=== PATIENT | female | born 1960 | race African-American/Black ===

== ENCOUNTER 2022-11-09 19:14 | Inpatient (IN) | payer OTHER, SELFPAY ==
[2022-11-09] MEDS ORDERED: Midazolam HCl 2 mg/2 ml Vial ONE ×2 (19:27→19:57)
[2022-11-09] MEDS ORDERED: Boostrix 0.5 ML (Tdap) VIAL (>/=7 yrs of age) ONE (19:38)
[2022-11-09] MEDS ORDERED: Ketorolac Tromethamine 30 MG/ML VIAL ONE (19:38)
[2022-11-09] MEDS ORDERED: metroNIDAZOLE 500 MG/100 ML BAG ONE (19:41)
[2022-11-09] MEDS ORDERED: Rabies Vaccine Human 2.5 UNITS VIAL ONE (19:56)
[2022-11-09] MEDS ORDERED: fentaNYL PF 100 MCG/2 ML SYRINGE ONE (19:57)
[2022-11-09] MEDS ORDERED: Neomycin-Polymyxin 1 ML AMP ONE (20:02)
[2022-11-09 20:12] LABS: #Eosinphils 0.1 thou/uL (0.0-0.7); #Monocytes 0.6 thou/uL (0.11-0.59); #Neutrophils 10.6 thou/uL (1.40-6.50); %Basophils 0.1 % (0.0-1.0); %Eosinophils 0.6 % (0.0-10.0); %Lymphocytes 7.9 % (21.0-51.0); %Neutrophils 86.4 % (42.0-75.0); Hemoglobin 11.4 g/dL (12.0-16.0); Mean Corpuscular HGB CONC 33.3 g/dL (32.0-36.0); Mean Corpuscular Hemoglobin 30.1 pg (27.0-31.0); Mean Corpuscular Volume 90.3 fl (78.0-98.0); Mean Platelet Volume 6.7 fL (7.4-10.4); Platelet Count 202 10x3/uL (130-400); RBC Distribution Width 12.3 % (11.5-14.5); White Blood Cell (WBC) Count 12.3 10x3/uL (4.8-10.8)
[2022-11-09 20:33] LABS: ALT (SGPT) 13 U/L (8-55); AST (SGOT) 20 U/L (5-34); Acetaminophen Less than 10.0 mcg/mL (10.0-30.0); Albumin 3.8 g/dL (3.4-4.8); Alcohol Less than 10 mg/dL (Less than 10); Alkaline Phosphatase 123 U/L (40-110); Anion Gap 15 mmol/L (10-20); BUN (Urea Nitrogen) 14 mg/dL (9.8-20.1); Bilirubin, Total 0.2 mg/dL (0.2-1.2); Calc. Creatinine Clearance 0 mL/min (70-130); Calcium 8.9 mg/dL (7.8-10.44); Carbon Dioxide 22 mmol/L (23-31); Chloride 110 mmol/L (98-107); Estimated GFR 87; Globulin 3.3 g/dL (2.4-3.5); Glucose 95 mg/dL (80-115); Potassium 3.8 mmol/L (3.5-5.1); Protein, Total 7.1 g/dL (5.8-8.1); Salicylate Less than 8.0 mg/dL (15.0-30.0); Sodium 143 mmol/L (136-145)
[2022-11-09] MEDS ORDERED: Promethazine HCl 25 MG/ML VIAL IM PRN (20:41)
[2022-11-09] MEDS ORDERED: Ondansetron HCl/PF 4 MG/2 ML Vial IVP PRN (20:41)
[2022-11-09] MEDS ORDERED: GLYCOPYRROLATE/PF 0.2 MG/ML VIAL ONE (20:50)
[2022-11-09] MEDS ORDERED: Ondansetron PF 4 MG/2 ML Vial ONE (20:50)
[2022-11-09] MEDS ORDERED: Lidocaine 1% PF 5 ML VIAL ONE (20:50)
[2022-11-09] MEDS ORDERED: Rocuronium Bromide 10 MG/ML (10ML VIAL) ONE (20:50)
[2022-11-09] MEDS ORDERED: NEOSTIGMINE 3 MG/3 ML SYR 3 MG/3 ML SYRINGE ONE (20:50)
[2022-11-09] MEDS ORDERED: Succinylcholine Chloride 100 MG/5 ML SYRINGE FS ONE (20:50)
[2022-11-09] MEDS ORDERED: Ondansetron ODT 4 MG TAB PO PRN (21:34)
[2022-11-09] MEDS ORDERED: hydrALAZINE 20 MG/ML VIAL SLOW IVP PRN (21:34)
[2022-11-09] MEDS ORDERED: Dextrose 50% Abboject 50 ML SYRINGE SLOW IVP PRN (21:34)
[2022-11-09] MEDS ORDERED: Dextrose 5% in Water 1,000 ML IV PRN (21:34)
[2022-11-09] MEDS ORDERED: Ipratropium/Albuterol 3 ML NEB NEB PRN (21:34)
[2022-11-09] MEDS ORDERED: Ondansetron PF 4 MG/2 ML Vial IVP PRN (21:34)
[2022-11-09] MEDS ORDERED: Morphine 2 MG/ML VIAL SLOW IVP PRN (21:34)
[2022-11-09] MEDS ORDERED: Cyclobenzaprine 10 MG TAB PO PRN (21:38)
[2022-11-09] MEDS ORDERED: traMADol HCl 50 MG TAB PO PRN (21:38)
[2022-11-09] MEDS ORDERED: Bupivacaine 0.25% HCL 30 ML VIAL ONE (21:39)
[2022-11-09] MEDS ORDERED: Sodium Chloride 0.9% 1,000 ML IV SCH (21:45)
[2022-11-09] MEDS ORDERED: Labetalol HCl 100 MG/20 ML VIAL ONE (22:18)
[2022-11-09] MEDS ORDERED: fentaNYL 50 mcg/mL 1 mL Vial ONE (22:18)
[2022-11-09 23:24] VITALS: BMI 21.8
[2022-11-09] MEDS: Gabapentin 100 MG CAP PO SCH (23:57)
[2022-11-09] MEDS ORDERED: Ibuprofen 200 MG TAB PO PRN (23:59)
[2022-11-10] MEDS: Acetaminophen 500 MG TAB PO SCH ×4 (01:04→17:23)
[2022-11-10] MEDS: CEFAZOLIN 1 GM in Sodium Chloride 0.9% 100 ML IVPB SCH ×3 (01:04→17:24)
[2022-11-10] MEDS: Oxazepam 10 MG CAP PO SCH ×4 (01:05→20:52)
[2022-11-10] MEDS: traMADol HCl 50 MG TAB PO SCH ×4 (02:47→17:24)
[2022-11-10] MEDS: Gabapentin 100 MG CAP PO SCH ×3 (06:23→20:51)
[2022-11-10 07:12] LABS: Amphetamine Not Detected (NotDetected); Barbiturates Screen Not Detected (NotDetected); Benzodiazepine Screen Detected (NotDetected); Cocaine Metabolite Screen Not Detected (NotDetected); Methadone Not Detected (NotDetected); Methamphetamine Not Detected (NotDetected); Opiate Screen Not Detected (NotDetected); Oxycodone Screen Not Detected (NotDetected); Phencyclidine (PCP) Not Detected (NotDetected); THC/Cannabinoid Screen Not Detected (NotDetected); Tricyclic Screen Not Detected (NotDetected)
[2022-11-10 08:06] LABS: #Eosinphils 0.1 thou/uL (0.0-0.7); #Lymphocytes 0.9 thou/uL (1.20-3.40); #Monocytes 0.7 thou/uL (0.11-0.59); #Neutrophils 6.7 thou/uL (1.40-6.50); %Basophils 0.1 % (0.0-1.0); %Eosinophils 0.8 % (0.0-10.0); %Lymphocytes 10.6 % (21.0-51.0); %Monocytes 8.2 % (0.0-10.0); %Neutrophils 80.3 % (42.0-75.0); Hemoglobin 8.5 g/dL (12.0-16.0); Mean Corpuscular HGB CONC 32.4 g/dL (32.0-36.0); Mean Corpuscular Hemoglobin 29.6 pg (27.0-31.0); Mean Corpuscular Volume 91.3 fl (78.0-98.0); Mean Platelet Volume 6.3 fL (7.4-10.4); Platelet Count 150 10x3/uL (130-400); RBC Distribution Width 12.3 % (11.5-14.5); Red Blood Cell (RBC) Count 2.88 mill/uL (4.20-5.40); White Blood Cell (WBC) Count 8.4 10x3/uL (4.8-10.8)
[2022-11-10 08:26] LABS: Anion Gap 5 mmol/L (10-20); BUN (Urea Nitrogen) 15 mg/dL (9.8-20.1); Calc. Creatinine Clearance 55 mL/min (70-130); Carbon Dioxide 24 mmol/L (23-31); Chloride 112 mmol/L (98-107); Estimated GFR 89; Glucose 96 mg/dL (80-115); Magnesium 1.8 mg/dL (1.6-2.6); Potassium 3.4 mmol/L (3.5-5.1); Sodium 138 mmol/L (136-145)
[2022-11-10 08:28] LABS: Phosphorus 3.9 mg/dL (2.3-4.7)
[2022-11-10] MEDS ORDERED: Potassium Chloride 20 MEQ TAB PO SCH (08:30)
[2022-11-10] MEDS ORDERED: Magnesium 2 GM/50 ML(in water) 2 GM in Premix Bag 1 BAG IVPB SCH (09:00)
[2022-11-10] MEDS: Polyethylene Glycol 3350 17 GM Packet PO SCH (09:03)
[2022-11-10] MEDS: Thiamine 100 MG TAB PO SCH (09:04)
[2022-11-10] MEDS: Famotidine 20 MG TAB PO SCH ×2 (09:04→20:51)
[2022-11-10] MEDS: Multivitamin W/ Minerals 1 TAB PO SCH (09:04)
[2022-11-10] MEDS: Senokot S 8.6-50 MG TAB PO SCH ×2 (09:04→20:52)
[2022-11-10] MEDS: Folic Acid 1 MG TAB PO SCH (09:04)
[2022-11-10] MEDS: diphenhydrAMINE 50 MG CAP PO PRN ×2 (15:45→20:52)
[2022-11-11] MEDS: Acetaminophen 500 MG TAB PO SCH ×3 (01:05→12:25)
[2022-11-11] MEDS: CEFAZOLIN 1 GM in Sodium Chloride 0.9% 100 ML IVPB SCH (01:12)
[2022-11-11] MEDS: traMADol HCl 50 MG TAB PO SCH ×3 (01:57→12:25)
[2022-11-11] MEDS: Gabapentin 100 MG CAP PO SCH ×2 (05:25→14:24)
[2022-11-11] MEDS: Oxazepam 10 MG CAP PO SCH ×2 (05:25→14:24)
[2022-11-11 07:10] LABS: #Eosinphils 0.2 thou/uL (0.0-0.7); #Lymphocytes 1.3 thou/uL (1.20-3.40); #Monocytes 0.8 thou/uL (0.11-0.59); #Neutrophils 7.6 thou/uL (1.40-6.50); %Basophils 0.4 % (0.0-1.0); %Eosinophils 1.9 % (0.0-10.0); %Monocytes 7.9 % (0.0-10.0); %Neutrophils 76.9 % (42.0-75.0); Hemoglobin 9.3 g/dL (12.0-16.0); Mean Corpuscular HGB CONC 31.2 g/dL (32.0-36.0); Mean Platelet Volume 6.9 fL (7.4-10.4); Platelet Count 178 10x3/uL (130-400); RBC Distribution Width 12.5 % (11.5-14.5); Red Blood Cell (RBC) Count 3.22 mill/uL (4.20-5.40); White Blood Cell (WBC) Count 9.9 10x3/uL (4.8-10.8)
[2022-11-11 07:29] LABS: Anion Gap 10 mmol/L (10-20); BUN (Urea Nitrogen) 14 mg/dL (9.8-20.1); Calc. Creatinine Clearance 49 mL/min (70-130); Calcium 8.5 mg/dL (7.8-10.44); Carbon Dioxide 22 mmol/L (23-31); Chloride 110 mmol/L (98-107); Estimated GFR 78; Glucose 87 mg/dL (80-115); Magnesium 2.3 mg/dL (1.6-2.6); Phosphorus 3.3 mg/dL (2.3-4.7); Potassium 4.8 mmol/L (3.5-5.1); Sodium 137 mmol/L (136-145)
[2022-11-11] MEDS ORDERED: Sulfameth/Trimethoprim DS 800-160mg TAB PO SCH (09:00)
[2022-11-11] MEDS: Polyethylene Glycol 3350 17 GM Packet PO SCH (09:24)
[2022-11-11] MEDS: Famotidine 20 MG TAB PO SCH (09:24)
[2022-11-11] MEDS: Folic Acid 1 MG TAB PO SCH (09:25)
[2022-11-11] MEDS: Thiamine 100 MG TAB PO SCH (09:25)
[2022-11-11] MEDS: Multivitamin W/ Minerals 1 TAB PO SCH (09:25)
[2022-11-11] MEDS: Senokot S 8.6-50 MG TAB PO SCH (09:26)
[2022-11-11 12:45] VITALS: BP 130/86; TEMP 98.4
== END 2022-11-11 17:05 | disposition home or self-care (01) | DRG 580 ==
LOC: ERS 19:14 → SDC/OP 21:39 → SURG A 22:57 → OBSVTOIN 11-11 10:48
PROVIDERS: ADMIT Surgery; ATTEND Surgery
PROC: 0JQN0ZZ Repair Right Lower Leg Subcutaneous Tissue and Fascia, Open Approach (ICD-10-PCS; principal; 2022-11-09)
PROC: 0JDN0ZZ Extraction of Right Lower Leg Subcutaneous Tissue and Fascia, Open Approach (ICD-10-PCS; 2022-11-09)
DX: S81.851A Open bite, right lower leg, initial encounter (principal); D62 Acute posthemorrhagic anemia; W54.0XXA Bitten by dog, initial encounter; Z23 Encounter for immunization; F10.10 Alcohol abuse, uncomplicated; F99 Mental disorder, not otherwise specified; D64.9 Anemia, unspecified
CPT/HCPCS: 36415; 80048; 80053; 80306; 80307; 83735; 84100; 85025; 90376; 90471; 90472; 90675; 90715; 96365; 96367; 96374; 96375; 96376; G0378; J0690; J1885; J2250; J3010; J3475; J3490; J7050; S0020

== ENCOUNTER 2023-02-13 06:41 | Emergency (ER) | payer SELFPAY ==
[2023-02-13 08:54] LABS: Bilirubin Negative (Negative); Blood, Urine Negative (Negative); CAUTI Indications for Culture Alt mental st,lethar; Clarity Clear (Clear); Glucose, Urine (Dipstick) Normal (Negative); Ketone, Urine Negative (Negative); Leukocyte 500 Leu/uL (Negative); Nitrite Negative (Negative); Protein, Urine (Dipstick) Negative (Neg-Trace); RBC/HPF 0-3 HPF (0-3); Specific Gravity, Urine 1.014 (1.002-1.036); Squamous Epithelial 0-3 HPF (0-3); Urobilinogen Normal mg/dL (Less than 2)
[2023-02-13 09:01] LABS: #Basophils 0.1 thou/uL (0.0-0.2); #Eosinphils 0.1 thou/uL (0.0-0.7); #Monocytes 0.6 thou/uL (0.11-0.59); #Neutrophils 5.3 thou/uL (1.40-6.50); %Basophils 0.9 % (0.0-1.0); %Eosinophils 1.5 % (0.0-10.0); %Lymphocytes 24.8 % (21.0-51.0); %Monocytes 7.3 % (0.0-10.0); %Neutrophils 65.3 % (42.0-75.0); Hemoglobin 11.2 g/dL (12.0-16.0); Mean Corpuscular Hemoglobin 27.3 pg (27.0-31.0); Mean Corpuscular Volume 87.8 fl (78.0-98.0); Mean Platelet Volume 9.4 fL (7.4-10.4); Platelet Count 198 10x3/uL (130-400); RBC Distribution Width 14.6 % (11.5-14.5); Red Blood Cell (RBC) Count 4.11 mill/uL (4.20-5.40); White Blood Cell (WBC) Count 8.1 10x3/uL (4.8-10.8)
[2023-02-13 09:02] LABS: Amphetamine Not Detected (NotDetected); Barbiturates Screen Not Detected (NotDetected); Benzodiazepine Screen Not Detected (NotDetected); Cocaine Metabolite Screen Not Detected (NotDetected); Methadone Not Detected (NotDetected); Methamphetamine Not Detected (NotDetected); Opiate Screen Not Detected (NotDetected); Oxycodone Screen Not Detected (NotDetected); Phencyclidine (PCP) Not Detected (NotDetected); THC/Cannabinoid Screen Not Detected (NotDetected); Tricyclic Screen Not Detected (NotDetected)
[2023-02-13 09:09] LABS: Bacteria/HPF None Seen HPF (None Seen)
[2023-02-13 09:12] LABS: Urine Culture Reflex No No
[2023-02-13 09:22] LABS: ALT (SGPT) 16 U/L (8-55); AST (SGOT) 27 U/L (5-34); Albumin 4.4 g/dL (3.4-4.8); Alkaline Phosphatase 149 U/L (40-110); Anion Gap 19 mmol/L (10-20); BUN (Urea Nitrogen) 11 mg/dL (9.8-20.1); Bilirubin, Total 0.3 mg/dL (0.2-1.2); CK (CPK) 239 U/L (29-168); Calc. Creatinine Clearance 0 mL/min (70-130); Calcium 9.5 mg/dL (7.8-10.44); Carbon Dioxide 19 mmol/L (23-31); Chloride 103 mmol/L (98-107); Estimated GFR 82; Globulin 4.3 g/dL (2.4-3.5); Glucose 82 mg/dL (80-115); Potassium 4.7 mmol/L (3.5-5.1); Protein, Total 8.7 g/dL (5.8-8.1); Sodium 136 mmol/L (136-145)
[2023-02-13 09:26] LABS: Acetaminophen Less than 10 mcg/mL (10.0-30.0); Alcohol Less than 10.0 mg/dL (Less than 10); Magnesium 2.5 mg/dL (1.6-2.6); Salicylate Less than 8.0 mg/dL (15.0-30.0)
[2023-02-13] MEDS ORDERED: Cephalexin 250 MG CAP ONE (10:32)
== END 2023-02-13 12:22 | disposition home or self-care (01) ==
LOC: ERS 06:41
DX: N39.0 Urinary tract infection, site not specified (principal); I10 Essential (primary) hypertension; F17.210 Nicotine dependence, cigarettes, uncomplicated
CPT/HCPCS: 70450; 71045; 80053; 80306; 80307; 81001; 82550; 83735; 84443; 84484; 85025; 93005